=== PATIENT | female | born 1930 | race Caucasian/White ===

== ENCOUNTER 2017-06-10 16:53 | Inpatient (IN) | payer BC, MEDICAID ==
[~2017-06-10] VITALS: Ht 167.6 cm; Wt 61.4 kg
[2017-06-10] MEDS ORDERED: ONDANSETRON HCL/PF 4 MG/2 ML VIAL ONE (17:24)
[2017-06-10] MEDS ORDERED: MORPHINE SULFATE INJ 4 MG/ML DISP.SYRIN ONE (17:25)
[2017-06-10] MEDS ORDERED: MORPHINE SULFATE INJ 2 MG/ML DISP.SYRIN IV ONE (17:30)
[2017-06-10] MEDS ORDERED: IV NS 0.9% 500 ML BAG IV ONE (17:30)
[2017-06-10] MEDS ORDERED: ONDANSETRON HCL/PF 4 MG/2 ML VIAL IVP ONE (17:30)
[2017-06-10 17:46] LABS: INR 1.03 (0.85-1.15)
[2017-06-10 17:47] LABS: ALANINE AMINOTRANSFERASE 21 U/L (12-78); ALBUMIN 3.7 g/dL (3.4-5.0); ALKALINE PHOSPHATASE 103 U/L (46-116); ASPARTATE AMINOTRANSFERASE 20 U/L (15-37); BILIRUBIN,DIRECT 0.1 mg/dL (0.0-0.2); BILIRUBIN,TOTAL 0.4 mg/dL (0.2-1.0); CALCIUM, SERUM 10.3 mg/dL (8.5-10.1); CARBON DIOXIDE 26 mmol/L (21-32); CHLORIDE 94 mmol/L (98-107); CREATININE 1.4 mg/dL (0.6-1.3); GLUCOSE 265 mg/dL (74-106); POTASSIUM 3.7 mmol/L (3.5-5.1); SODIUM SERUM 131 mmol/L (136-145); TOTAL PROTEIN, SERUM 7.5 g/dL (6.4-8.2); UREA NITROGEN, BLOOD 21 mg/dL (7-18)
[2017-06-10 17:49] LABS: BASOPHILS # (AUTO) 0.3 /CMM (0.0-0.2); BASOPHILS % (AUTO) 1.7 % (0.0-2.0); EOSINOPHILS % (AUTO) 0.2 % (0.0-6.0); HEMATOCRIT 36 % (33-45); HEMOGLOBIN 11.9 g/dL (11.5-14.8); LYMPHOCYTES # (AUTO) 0.6 /CMM (0.8-4.8); LYMPHOCYTES % (AUTO) 3.6 % (20.0-44.0); MEAN CORPUSCULAR HEMOGLOBIN 28 PG (26.0-33.0); MEAN CORPUSCULAR HGB CONC 33 g/dl (31.0-36.0); MEAN CORPUSCULAR VOLUME 84 fL (82-100); MONOCYTES # (AUTO) 0.8 /CMM (0.1-1.30); NEUTROPHILS # (AUTO) 14.6 /CMM (1.8-8.9); NEUTROPHILS % (AUTO) 89.5 % (43.0-81.0); PLATELET COUNT (AUTO) 259 /CMM (150-450); RED BLOOD CELL COUNT(AUTO) 4.26 MIL/uL (4.0-5.2); WHITE BLOOD COUNT (AUTO) 16.3 K/uL (4.3-11.0)
[2017-06-10] MEDS ORDERED: SIMV20TA6 PO (18:40)
[2017-06-10] MEDS ORDERED: BENA20TA2 PO (18:40)
[2017-06-10] MEDS ORDERED: FAMO20TA8 PO (18:40)
[2017-06-10] MEDS ORDERED: GLIP5TAB13 PO (18:40)
[2017-06-10] MEDS ORDERED: METF500T4 PO (18:40)
[2017-06-10] MEDS ORDERED: MEMA10TA PO (18:40)
[2017-06-10] MEDS ORDERED: FOLI1TAB16 PO (18:40)
[2017-06-10] MEDS ORDERED: IBUP-1957 PO (18:40)
[2017-06-10] MEDS ORDERED: FURO40TA5 PO (18:40)
[2017-06-10] MEDS ORDERED: MAG HYDROX/AL HYDROX/SIMETH 30 ML UDC PO PRN (20:30)
[2017-06-10] MEDS ORDERED: ONDANSETRON HCL/PF 4 MG/2 ML VIAL IVP PRN (20:30)
[2017-06-10] MEDS ORDERED: MAGNESIUM HYDROXIDE 30 ML UDC PO PRN (20:30)
[2017-06-10] MEDS ORDERED: HYDROCODONE/APAP 5/325MG 1 EACH TABLET PO PRN (20:30)
[2017-06-10] MEDS ORDERED: ACETAMINOPHEN 325 MG TABLET PO PRN (20:30)
[2017-06-10] MEDS ORDERED: TEMAZEPAM 15 MG CAPSULE PO PRN (20:30)
[2017-06-10 21:20] VITALS: BP 149/80
[2017-06-10] MEDS: ENOXAPARIN SODIUM 30 MG/0.3 ML DISP.SYRIN SQ SCH (22:00)
[2017-06-11 00:44] LABS: APPEARANCE,URINE CLOUDY (CLEAR); BILIRUBIN,URINE NEGATIVE (NEGATIVE); BLOOD, URINE TRACE-INTA Ery/uL (NEGATIVE); COLOR,URINE YELLOW (YELLOW); KETONES,URINE NEGATIVE (NEGATIVE); LEUKOCYTE ESTERASE ,URINE 3+ (NEGATIVE); NITRITE, URINE POSITIVE (NEGATIVE); PROTEIN,URINE NEGATIVE (NEGATIVE); UGLUCOSE NEGATIVE (NEGATIVE); UROBILINOGEN,URINE 0.2 EU/dL (0.2)
[2017-06-11 00:57] LABS: BACTERIA,URINE 4+ /HPF (None Seen); SQUAMOUS EPITHELIAL CELL,UR Few /HPF (None Seen); WBC,URINE 21-50 /HPF (0-3)
[2017-06-11 01:00] VITALS: BP 163/77
[2017-06-11] MEDS ORDERED: CEFTRIAXONE 1 G VIAL ONE (01:11)
[2017-06-11] MEDS: CEFTRIAXONE 1 G in IV D5W 50 ML IV SCH (01:16)
[2017-06-11] MEDS: MORPHINE SULFATE INJ 4 MG/ML DISP.SYRIN IV PRN ×2 (01:18→16:15)
[2017-06-11] MEDS: CLONIDINE HCL 0.1 MG TABLET PO PRN (01:18)
[2017-06-11 02:00] VITALS: BP 117/64
[2017-06-11 05:52] LABS: BASOPHILS % (AUTO) 0.3 % (0.0-2.0); EOSINOPHILS % (AUTO) 0.3 % (0.0-6.0); HEMATOCRIT 29 % (33-45); HEMOGLOBIN 9.8 g/dL (11.5-14.8); LYMPHOCYTES # (AUTO) 0.9 /CMM (0.8-4.8); LYMPHOCYTES % (AUTO) 10.5 % (20.0-44.0); MEAN CORPUSCULAR HEMOGLOBIN 29 PG (26.0-33.0); MEAN CORPUSCULAR HGB CONC 34 g/dl (31.0-36.0); MEAN CORPUSCULAR VOLUME 86 fL (82-100); MONOCYTES # (AUTO) 0.7 /CMM (0.1-1.30); MONOCYTES % (AUTO) 7.4 % (2.0-12.0); NEUTROPHILS # (AUTO) 7.3 /CMM (1.8-8.9); NEUTROPHILS % (AUTO) 81.5 % (43.0-81.0); PLATELET COUNT (AUTO) 187 /CMM (150-450); RDW COEFFICIENT OF VARIATION 13.6 (11.5-15.0); RED BLOOD CELL COUNT(AUTO) 3.37 MIL/uL (4.0-5.2); WHITE BLOOD COUNT (AUTO) 8.9 K/uL (4.3-11.0)
[2017-06-11 06:28] LABS: CALCIUM, SERUM 8.9 mg/dL (8.5-10.1); CARBON DIOXIDE 28 mmol/L (21-32); CHLORIDE 99 mmol/L (98-107); GLUCOSE 210 mg/dL (74-106); MAGNESIUM 1.4 mg/dL (1.8-2.4); PHOSPHORUS 2.7 mg/dL (2.5-4.9); POTASSIUM 4.5 mmol/L (3.5-5.1); SODIUM SERUM 136 mmol/L (136-145); UREA NITROGEN, BLOOD 18 mg/dL (7-18)
[2017-06-11 06:41] LABS: CHOLESTEROL 142 mg/dL (<200); HDL CHOLESTEROL 62 mg/dL (40-60); LDL 69 mg/dL (0-99); THYROID STIMULATING HORMONE 0.317 uIU/mL (0.358-3.74); TRIGLYCERIDES 57 mg/dL (30-150)
[2017-06-11 08:00] VITALS: BP 100/54
[2017-06-11] MEDS ORDERED: EPLERENONE PO SCH (09:00)
[2017-06-11] MEDS ORDERED: PANTOPRAZOLE 40 MG VIAL IV SCH (09:00)
[2017-06-11] MEDS: Magnesium 1GM/D5W 100ML PREMIX 100 ML IV SCH ×4 (10:18→14:19)
[2017-06-11 14:00] VITALS: BP 121/72
[2017-06-11] MEDS ORDERED: DEXTROSE 50%-WATER 50 ML DISP.SYRIN IV PRN (14:30)
[2017-06-11] MEDS: METFORMIN 500 MG TABLET PO SCH (16:15)
[2017-06-11] MEDS: MEMANTINE HCL 5 MG TABLET PO SCH (16:16)
[2017-06-11] MEDS: glipiZIDE 5 MG TABLET PO SCH (16:16)
[2017-06-11] MEDS: FAMOTIDINE (20 MG) 20 MG TABLET PO SCH (16:16)
[2017-06-11] MEDS ORDERED: BLOOD SUGAR DIAGNOSTIC 1 EACH STRIP IN SCH (17:30)
[2017-06-11] MEDS: SIMVASTATIN 20 MG TABLET PO SCH (17:33)
[2017-06-11] MEDS: INSULIN REGULAR, HUMAN 100 UNIT/ML 3 ML VIAL SQ PRN ×2 (17:35→21:17)
[2017-06-11] MEDS: BLOOD SUGAR DIAGNOSTIC 1 EACH STRIP IN SCH ×2 (17:36→21:16)
[2017-06-11 20:00] VITALS: BP 125/73
[2017-06-11] MEDS: ENOXAPARIN SODIUM 30 MG/0.3 ML DISP.SYRIN SQ SCH (21:25)
[2017-06-12] MEDS: CEFTRIAXONE 1 G in IV D5W 50 ML IV SCH (01:04)
[2017-06-12] MEDS: MORPHINE SULFATE INJ 4 MG/ML DISP.SYRIN IV PRN (05:18)
[2017-06-12] MEDS: INSULIN REGULAR, HUMAN 100 UNIT/ML 3 ML VIAL SQ PRN ×3 (05:59→21:26)
[2017-06-12] MEDS: BLOOD SUGAR DIAGNOSTIC 1 EACH STRIP IN SCH ×4 (05:59→21:09)
[2017-06-12 07:14] LABS: BASOPHILS % (AUTO) 0.4 % (0.0-2.0); EOSINOPHILS # (AUTO) 0.2 /CMM (0.0-0.7); EOSINOPHILS % (AUTO) 2.3 % (0.0-6.0); HEMATOCRIT 26 % (33-45); HEMOGLOBIN 8.9 g/dL (11.5-14.8); LYMPHOCYTES % (AUTO) 12.3 % (20.0-44.0); MEAN CORPUSCULAR HEMOGLOBIN 29 PG (26.0-33.0); MEAN CORPUSCULAR HGB CONC 34 g/dl (31.0-36.0); MEAN CORPUSCULAR VOLUME 86 fL (82-100); MONOCYTES # (AUTO) 0.6 /CMM (0.1-1.30); MONOCYTES % (AUTO) 7.3 % (2.0-12.0); NEUTROPHILS # (AUTO) 6.6 /CMM (1.8-8.9); NEUTROPHILS % (AUTO) 77.7 % (43.0-81.0); PLATELET COUNT (AUTO) 150 /CMM (150-450); RDW COEFFICIENT OF VARIATION 13.8 (11.5-15.0); RED BLOOD CELL COUNT(AUTO) 3.06 MIL/uL (4.0-5.2); WHITE BLOOD COUNT (AUTO) 8.4 K/uL (4.3-11.0)
[2017-06-12 07:30] LABS: CALCIUM, SERUM 8.8 mg/dL (8.5-10.1); CARBON DIOXIDE 33 mmol/L (21-32); CHLORIDE 100 mmol/L (98-107); CREATININE 1.1 mg/dL (0.6-1.3); GLUCOSE 129 mg/dL (74-106); MAGNESIUM 2.3 mg/dL (1.8-2.4); POTASSIUM 4.4 mmol/L (3.5-5.1); SODIUM SERUM 135 mmol/L (136-145); UREA NITROGEN, BLOOD 20 mg/dL (7-18)
[2017-06-12 08:00] VITALS: BP 100/53
[2017-06-12] MEDS: FAMOTIDINE (20 MG) 20 MG TABLET PO SCH ×2 (08:54→17:18)
[2017-06-12] MEDS: IBUPROFEN 400 MG TABLET PO SCH (08:54)
[2017-06-12] MEDS: glipiZIDE 5 MG TABLET PO SCH ×2 (08:54→17:18)
[2017-06-12] MEDS: FOLIC ACID 1 MG TABLET PO SCH (08:55)
[2017-06-12] MEDS: METFORMIN 500 MG TABLET PO SCH ×2 (08:55→17:18)
[2017-06-12] MEDS: MEMANTINE HCL 5 MG TABLET PO SCH ×2 (08:55→17:18)
[2017-06-12] MEDS ORDERED: IBUPROFEN 800 MG TABLET PO SCH (09:00)
[2017-06-12] MEDS: BENAZEPRIL HCL 20 MG TABLET PO SCH (09:00)
[2017-06-12] MEDS: FUROSEMIDE 40 MG TABLET PO SCH (09:00)
[2017-06-12 16:00] VITALS: BP 133/63
[2017-06-12] MEDS: SIMVASTATIN 20 MG TABLET PO SCH (17:18)
[2017-06-12 20:00] VITALS: BP 125/67
[2017-06-12] MEDS: ENOXAPARIN SODIUM 30 MG/0.3 ML DISP.SYRIN SQ SCH (21:16)
[2017-06-13] MEDS: CEFTRIAXONE 1 G in IV D5W 50 ML IV SCH (00:13)
[2017-06-13] MEDS: TEMAZEPAM 7.5 MG CAPSULE PO PRN (01:19)
[2017-06-13 06:25] LABS: BASOPHILS # (AUTO) 0.1 /CMM (0.0-0.2); BASOPHILS % (AUTO) 0.4 % (0.0-2.0); EOSINOPHILS # (AUTO) 0.2 /CMM (0.0-0.7); EOSINOPHILS % (AUTO) 1.8 % (0.0-6.0); HEMATOCRIT 35 % (33-45); HEMOGLOBIN 11.5 g/dL (11.5-14.8); LYMPHOCYTES # (AUTO) 1.8 /CMM (0.8-4.8); LYMPHOCYTES % (AUTO) 13.9 % (20.0-44.0); MEAN CORPUSCULAR HEMOGLOBIN 29 PG (26.0-33.0); MEAN CORPUSCULAR HGB CONC 33 g/dl (31.0-36.0); MEAN CORPUSCULAR VOLUME 86 fL (82-100); MONOCYTES # (AUTO) 0.9 /CMM (0.1-1.30); MONOCYTES % (AUTO) 6.7 % (2.0-12.0); NEUTROPHILS # (AUTO) 10.1 /CMM (1.8-8.9); NEUTROPHILS % (AUTO) 77.2 % (43.0-81.0); PLATELET COUNT (AUTO) 253 /CMM (150-450); RED BLOOD CELL COUNT(AUTO) 3.99 MIL/uL (4.0-5.2); WHITE BLOOD COUNT (AUTO) 13.1 K/uL (4.3-11.0)
[2017-06-13 06:37] LABS: CALCIUM, SERUM 10.1 mg/dL (8.5-10.1); CARBON DIOXIDE 28 mmol/L (21-32); CHLORIDE 95 mmol/L (98-107); CREATININE 1.3 mg/dL (0.6-1.3); GLUCOSE 188 mg/dL (74-106); SODIUM SERUM 131 mmol/L (136-145); UREA NITROGEN, BLOOD 30 mg/dL (7-18)
[2017-06-13] MEDS: BLOOD SUGAR DIAGNOSTIC 1 EACH STRIP IN SCH ×4 (06:51→22:31)
[2017-06-13] MEDS: INSULIN REGULAR, HUMAN 100 UNIT/ML 3 ML VIAL SQ PRN ×4 (06:55→22:34)
[2017-06-13 08:00] VITALS: BP_SYST 135; BP_SYST 153; BP_DIAS 69; BP_DIAS 77
[2017-06-13] MEDS: glipiZIDE 5 MG TABLET PO SCH ×2 (08:19→17:20)
[2017-06-13] MEDS: FUROSEMIDE 40 MG TABLET PO SCH (08:19)
[2017-06-13] MEDS: METFORMIN 500 MG TABLET PO SCH ×2 (08:19→17:20)
[2017-06-13] MEDS: FAMOTIDINE (20 MG) 20 MG TABLET PO SCH ×2 (08:20→17:21)
[2017-06-13] MEDS: IBUPROFEN 400 MG TABLET PO SCH (08:20)
[2017-06-13] MEDS: FOLIC ACID 1 MG TABLET PO SCH (08:20)
[2017-06-13] MEDS: BENAZEPRIL HCL 20 MG TABLET PO SCH (08:21)
[2017-06-13] MEDS: MEMANTINE HCL 5 MG TABLET PO SCH ×2 (08:21→17:21)
[2017-06-13] MEDS ORDERED: IV NS 0.9% 1,000 ML IV PRN (12:30)
[2017-06-13 16:00] VITALS: BP 155/70
[2017-06-13] MEDS: SIMVASTATIN 20 MG TABLET PO SCH (17:21)
[2017-06-13 19:49] VITALS: BP 168/98
[2017-06-13 20:00] VITALS: BP 168/98
[2017-06-13] MEDS: CLONIDINE HCL 0.1 MG TABLET PO PRN (20:10)
[2017-06-13] MEDS: ENOXAPARIN SODIUM 30 MG/0.3 ML DISP.SYRIN SQ SCH (20:11)
[2017-06-13 21:30] VITALS: BP 131/68
[2017-06-14] MEDS: CEFTRIAXONE 1 G in IV D5W 50 ML IV SCH (00:58)
[2017-06-14 06:30] LABS: BASOPHILS % (AUTO) 0.5 % (0.0-2.0); EOSINOPHILS # (AUTO) 0.1 /CMM (0.0-0.7); EOSINOPHILS % (AUTO) 0.9 % (0.0-6.0); HEMATOCRIT 28 % (33-45); HEMOGLOBIN 9.4 g/dL (11.5-14.8); LYMPHOCYTES # (AUTO) 1.5 /CMM (0.8-4.8); LYMPHOCYTES % (AUTO) 17.5 % (20.0-44.0); MEAN CORPUSCULAR HEMOGLOBIN 29 PG (26.0-33.0); MEAN CORPUSCULAR HGB CONC 33 g/dl (31.0-36.0); MEAN CORPUSCULAR VOLUME 86 fL (82-100); MONOCYTES # (AUTO) 0.9 /CMM (0.1-1.30); MONOCYTES % (AUTO) 10.8 % (2.0-12.0); NEUTROPHILS # (AUTO) 5.9 /CMM (1.8-8.9); NEUTROPHILS % (AUTO) 70.3 % (43.0-81.0); PLATELET COUNT (AUTO) 211 /CMM (150-450); RED BLOOD CELL COUNT(AUTO) 3.28 MIL/uL (4.0-5.2); WHITE BLOOD COUNT (AUTO) 8.4 K/uL (4.3-11.0)
[2017-06-14] MEDS: BLOOD SUGAR DIAGNOSTIC 1 EACH STRIP IN SCH ×4 (06:41→21:58)
[2017-06-14 06:43] LABS: CALCIUM, SERUM 9.4 mg/dL (8.5-10.1); CARBON DIOXIDE 27 mmol/L (21-32); CHLORIDE 99 mmol/L (98-107); CREATININE 1.2 mg/dL (0.6-1.3); GLUCOSE 79 mg/dL (74-106); POTASSIUM 4.5 mmol/L (3.5-5.1); SODIUM SERUM 135 mmol/L (136-145); UREA NITROGEN, BLOOD 36 mg/dL (7-18)
[2017-06-14 06:45] LABS: OSMOLALITY,SERUM 284 mOS/kg (278-305)
[2017-06-14 06:45] LABS: OSMOLALITY,URINE 491 mOS/kg (340-1090)
[2017-06-14 07:08] LABS: URINE SODIUM, RANDOM 14 mmol/l (40-220)
[2017-06-14 08:00] VITALS: BP 117/72
[2017-06-14] MEDS: FOLIC ACID 1 MG TABLET PO SCH (08:39)
[2017-06-14] MEDS: glipiZIDE 5 MG TABLET PO SCH ×2 (08:39→17:00)
[2017-06-14] MEDS: FUROSEMIDE 40 MG TABLET PO SCH (08:39)
[2017-06-14] MEDS: IBUPROFEN 400 MG TABLET PO SCH (08:39)
[2017-06-14] MEDS: FAMOTIDINE (20 MG) 20 MG TABLET PO SCH ×2 (08:39→17:00)
[2017-06-14] MEDS: METFORMIN 500 MG TABLET PO SCH ×2 (08:39→17:00)
[2017-06-14] MEDS: MEMANTINE HCL 5 MG TABLET PO SCH ×2 (08:39→17:00)
[2017-06-14] MEDS: BENAZEPRIL HCL 20 MG TABLET PO SCH (08:39)
[2017-06-14] MEDS ORDERED: IV NS 0.9% 1,000 ML BAG IV SCH (09:00)
[2017-06-14] MEDS ORDERED: Z GUARD REMEDY 2 OZ OINT TP PRN (09:30)
[2017-06-14] MEDS: Z GUARD REMEDY 2 OZ OINT TP SCH (09:30)
[2017-06-14 16:00] VITALS: BP 128/68
[2017-06-14] MEDS: SIMVASTATIN 20 MG TABLET PO SCH (17:04)
[2017-06-14] MEDS: INSULIN REGULAR, HUMAN 100 UNIT/ML 3 ML VIAL SQ PRN (17:21)
[2017-06-14 20:00] VITALS: BP 138/68
[2017-06-14] MEDS: ENOXAPARIN SODIUM 30 MG/0.3 ML DISP.SYRIN SQ SCH (22:02)
[2017-06-15] MEDS: CEFTRIAXONE 1 G in IV D5W 50 ML IV SCH (00:15)
[2017-06-15] MEDS: TEMAZEPAM 7.5 MG CAPSULE PO PRN (00:18)
[2017-06-15] MEDS: BLOOD SUGAR DIAGNOSTIC 1 EACH STRIP IN SCH ×3 (06:51→17:36)
[2017-06-15] MEDS: INSULIN REGULAR, HUMAN 100 UNIT/ML 3 ML VIAL SQ PRN (06:53)
[2017-06-15 08:00] VITALS: BP 165/73
[2017-06-15] MEDS: FOLIC ACID 1 MG TABLET PO SCH (09:00)
[2017-06-15] MEDS: MEMANTINE HCL 5 MG TABLET PO SCH ×2 (10:57→17:38)
[2017-06-15] MEDS: FUROSEMIDE 40 MG TABLET PO SCH (10:58)
[2017-06-15] MEDS: glipiZIDE 5 MG TABLET PO SCH ×2 (10:58→17:34)
[2017-06-15] MEDS: IBUPROFEN 400 MG TABLET PO SCH (10:58)
[2017-06-15] MEDS: FAMOTIDINE (20 MG) 20 MG TABLET PO SCH ×2 (10:58→17:34)
[2017-06-15] MEDS: METFORMIN 500 MG TABLET PO SCH ×2 (10:58→17:34)
[2017-06-15] MEDS: BENAZEPRIL HCL 20 MG TABLET PO SCH (11:00)
[2017-06-15] MEDS: Z GUARD REMEDY 2 OZ OINT TP SCH (11:01)
[2017-06-15 16:15] VITALS: BP 122/80
[2017-06-15] MEDS: SIMVASTATIN 20 MG TABLET PO SCH (17:34)
[2017-06-15 18:20] VITALS: BP 181/93
[2017-06-15] MEDS: CLONIDINE HCL 0.1 MG TABLET PO PRN (18:20)
== END 2017-06-15 19:06 | DRG 542 ==
LOC: ER 16:55 → MEDSG2 20:27
PROVIDERS: ADMIT Nurse Practitioner Acute Care; ATTEND Nurse Practitioner Acute Care
DX: M80.852A Other osteoporosis with current pathological fracture, left femur, initial encounter for fracture (principal); N17.0 Acute kidney failure with tubular necrosis; E87.1 Hypo-osmolality and hyponatremia; E11.65 Type 2 diabetes mellitus with hyperglycemia; I50.9 Heart failure, unspecified; I11.0 Hypertensive heart disease with heart failure; M32.9 Systemic lupus erythematosus, unspecified; N39.0 Urinary tract infection, site not specified; W01.0XXA Fall on same level from slipping, tripping and stumbling without subsequent striking against object, initial encounter; Y92.009 Unspecified place in unspecified non-institutional (private) residence as the place of occurrence of the external cause; F03.90 Unspecified dementia, unspecified severity, without behavioral disturbance, psychotic disturbance, mood disturbance, and anxiety; Z79.84 Long term (current) use of oral hypoglycemic drugs; Z79.899 Other long term (current) drug therapy; B96.20 Unspecified Escherichia coli [E. coli] as the cause of diseases classified elsewhere; E86.0 Dehydration; E78.5 Hyperlipidemia, unspecified; E86.1 Hypovolemia
CPT/HCPCS: 36415; 71045-TC; 72192-TC; 73020; 80048-TC; 80061-TC; 80076-TC; 81000-TC; 82962-TC; 83735-TC; 83935-TC; 84100-TC; 84300-TC; 84443-TC; 85025-TC; 85730-TC; 86850-TC; 87081-TC; 87086-TC; 87186-TC; 97110-TC; 97530-TC; A4606; C9113; J0696; J1650; J1815; J2270; J2405; J3475; J7030; J7050; J7060; Z7610